=== PATIENT | female | born 1965 | race Hispanic/Latino ===

== ENCOUNTER 2018-02-20 10:19 | Outpatient (CLI) | payer OTHER ==
--- NOTE | 2018-02-20 14:32 | Fluoroscopy Report ---
UPPER GI SERIES History: Gastroesophageal reflux. Findings: [employer] film of the abdomen demonstrates a lap band device which appears in adequate position. There is no evidence for bowel obstruction or pathologic calcifications. 42 fluoroscopic images were obtained during ingestion of barium contrast agent. The esophagus is normal caliber and mucosal pattern throughout. No hiatal hernia. No episodes of reflux were witnessed during this exam. The gastric pouch appears mildly enlarged measuring up to 8 cm in diameter. There appears to be distal slippage of the left band device which does not obstruct. The remainder of the stomach and duodenum are within normal limits. No mucosal lesion is appreciated. Impression: Slippage of the left band device is suspected as outlined above.
== END 2018-02-20 10:20 | disposition home or self-care (01) ==
LOC: FLUORO 10:19
PROVIDERS: ATTEND Specialist
DX: K21.9 Gastro-esophageal reflux disease without esophagitis (principal)
CPT/HCPCS: 74247